=== PATIENT | male | born 1965 | race Caucasian/White ===

== ENCOUNTER 2016-11-30 10:13 | Emergency (ER) | payer MEDICAID ==
[~2016-11-30] VITALS: Ht 172.7 cm; Wt 122.0 kg
[2016-11-30 10:18] VITALS: BP 174/94
== END 2016-11-30 12:26 | disposition home or self-care (01) ==
LOC: ED 12:20
DX: Z00.00 Encounter for general adult medical examination without abnormal findings (principal); K74.60 Unspecified cirrhosis of liver
CPT/HCPCS: 99284

== ENCOUNTER → 2017-11-01 | Outpatient (CLI) | payer MEDICAID | END | disposition home or self-care (01) | LOC: RAD 10:13 | PROVIDERS: ATTEND Family Medicine | DX: R16.1 Splenomegaly, not elsewhere classified (principal); K70.30 Alcoholic cirrhosis of liver without ascites | CPT/HCPCS: 93975 ==

== ENCOUNTER 2019-06-28 12:26 | Emergency (ER) | payer MEDICAID ==
[~2019-06-28] VITALS: Ht 172.7 cm; Wt 117.0 kg
--- NOTE | 2019-06-28 12:44 | NUR ---
PT AMBULATORY TO ROOM FROM TRIAGE.
--- NOTE | 2019-06-28 13:03 | NUR ---
BP CUFF, PULSE OX IN PLACE. PEDAL PULSES PALPABLE. PT R/O WORSENING CHRONIC R SIDED LOW BACK PAIN RADIATING DOWN R LEG. PT STATES INTENSITY HIGH 10/10 AND WORSE WHILE WALKING. PT STATES HX OF SAME, WENT AWAY ON OWN-NO MEDS. PT ALSO STATES INFORMED OF ABNORMAL LABS BY PMD OFFICE WEDNESDAY AND SCHEDULED APPT 07/16 TO REVIEW WITH PMD. WARM BLANKET PROVIDED, CALL LIGHT WITHIN REACH.
[2019-06-28] MEDS ORDERED: OXYcodone/APAP 10/325MG TABLET ONE (13:16)
[2019-06-28] MEDS ORDERED: METHOCARBAMOL 750 MG TABLET ONE (13:16)
--- NOTE | 2019-06-28 13:20 | NUR ---
PT TO CT.
[2019-06-28] MEDS ORDERED: METHOCARBAMOL 750 MG TABLET PO ONE (13:30)
[2019-06-28] MEDS ORDERED: OXYcodone/APAP 10/325MG TABLET PO ONE (13:30)
--- NOTE | 2019-06-28 13:30 | NUR ---
MEDS GIVEN PER ERP ORDER. CALL LIGHT WITHIN REACH.
[2019-06-28 14:03] LABS: ANION GAP 4 mmol/L (5-15); CALCIUM 8.3 mg/dL (8.5-10.1); CHLORIDE 107 mmol/L (98-107); CREATININE 0.84 mg/dL (0.7-1.3)
--- NOTE | 2019-06-28 14:14 | NUR ---
ALL RESULTS BACK, PT FOR RECHECK.
[2019-06-28 15:10] VITALS: BP 137/83
== END 2019-06-28 15:12 | disposition home or self-care (01) ==
LOC: ED 15:06
DX: M51.16 Intervertebral disc disorders with radiculopathy, lumbar region (principal); M48.061 Spinal stenosis, lumbar region without neurogenic claudication; I10 Essential (primary) hypertension; E78.00 Pure hypercholesterolemia, unspecified
CPT/HCPCS: 36415; 72131; 80048; 99284

== ENCOUNTER → 2019-07-25 | Outpatient (CLI) | payer MEDICAID | END | disposition home or self-care (01) | LOC: RAD 15:28 | PROVIDERS: ATTEND Neurological Surgery | DX: M47.26 Other spondylosis with radiculopathy, lumbar region (principal); M51.16 Intervertebral disc disorders with radiculopathy, lumbar region; M48.061 Spinal stenosis, lumbar region without neurogenic claudication | CPT/HCPCS: 72148 ==

== ENCOUNTER 2020-06-12 15:36 | Emergency (ER) | payer MEDICAID ==
[~2020-06-12] VITALS: Ht 172.7 cm; Wt 117.8 kg
--- NOTE | 2020-06-12 17:10 | NUR ---
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
[2020-06-12] MEDS ORDERED: CYCLOBENZAPRINE 10 MG TABLET PO ONE (17:30)
[2020-06-12] MEDS ORDERED: HYDROcodone/APAP 5/325 TABLET PO ONE (17:30)
[2020-06-12] MEDS ORDERED: ONDANSETRON ODT 4 MG PO ONE (17:30)
[2020-06-12] MEDS ORDERED: KETOROLAC 30 MG/1 ML IM ONE (17:30)
[2020-06-12] MEDS ORDERED: KETOROLAC 30 MG/1 ML ONE (17:31)
[2020-06-12] MEDS ORDERED: HYDROcodone/APAP 5/325 TABLET ONE (17:31)
[2020-06-12] MEDS ORDERED: ONDANSETRON ODT 4 MG ONE (17:31)
[2020-06-12] MEDS ORDERED: CYCLOBENZAPRINE 10 MG TABLET ONE (17:31)
--- NOTE | 2020-06-12 17:37 | NUR ---
PT MEDICATED PER EMAR. RESP EVEN AND UNLABORED, NADN.
[2020-06-12 17:57] VITALS: BP 152/88
--- NOTE | 2020-06-12 18:12 | NUR ---
Patient given discharge instructions and they have confirmed that they understand the instructions. Patient ambulatory with steady gait.
== END 2020-06-12 18:13 | disposition home or self-care (01) ==
LOC: ED 17:46
DX: M54.31 Sciatica, right side (principal); M54.5 Low back pain; I10 Essential (primary) hypertension; E78.00 Pure hypercholesterolemia, unspecified
CPT/HCPCS: 72110; 96372; 99284; J1885; Q0162

== ENCOUNTER 2020-07-19 20:28 | Inpatient (IN) | payer MEDICAID ==
[~2020-07-19] VITALS: Ht 175.3 cm; Wt 112.0 kg
[2020-07-19] MEDS ORDERED: SODIUM CHLORIDE FLUSH 10ML SYR IVF ONE (21:00)
[2020-07-19 21:19] LABS: ALBUMIN 3.1 g/dL (3.4-5.0); ANION GAP 4 mmol/L (5-15); CALCIUM 9.1 mg/dL (8.5-10.1); CHLORIDE 105 mmol/L (98-107)
[2020-07-19 21:22] LABS: BASOPHILS % (AUTO) 1 % (0-1); EOSINOPHILS % (AUTO) 2 % (1-7); LYMPHOCYTES % (AUTO) 13 % (22-44); MEAN CORPUSCULAR HEMOGLOBIN 33.6 pg (27.5-34.5); MEAN CORPUSCULAR HGB CONC 34.8 g/dL (33.2-36.2); MEAN PLATELET VOLUME 10.2 fL (7.4-10.4); MONOCYTES % (AUTO) 9 % (2-9); NEUTROPHILS % (AUTO) 76 % (42-75); PLATELET COUNT 102 x10^3/uL (130-400); RED BLOOD COUNT 5.21 x10^6/uL (4.38-5.82); RED CELL DISTRIBUTION WIDTH 13.2 % (9.4-14.8)
[2020-07-19 21:23] LABS: ALANINE AMINOTRANSFERASE 50 U/L (12-78); ALKALINE PHOSPHATASE 198 U/L (45-117); BILIRUBIN,TOTAL 1.5 mg/dL (0.2-1.0); CREATININE 1.09 mg/dL (0.7-1.3); TOTAL PROTEIN 7.4 g/dL (6.4-8.2)
[2020-07-19 22:17] LABS: MD SCAN
--- NOTE | 2020-07-19 22:22 | NUR ---
PT TO RM FROM LOBBY
[2020-07-19] MEDS ORDERED: MORPHINE SULFATE 4 MG/ML, 1ML ONE (22:50)
[2020-07-19] MEDS ORDERED: ONDANSETRON 2MG/ML, 2ML ONE (22:50)
[2020-07-19] MEDS ORDERED: MORPHINE SULFATE 4 MG/ML, 1ML IVPush PRN (23:00)
[2020-07-19] MEDS ORDERED: ONDANSETRON 2MG/ML, 2ML IVPush ONE (23:00)
[2020-07-20] MEDS ORDERED: SODIUM CHLORIDE 0.9% 1,000ML IVBOLUS ONE
[2020-07-20] MEDS ORDERED: MORPHINE SULFATE 4 MG/ML, 1ML IVPush PRN
[2020-07-20] MEDS ORDERED: SODIUM CHLORIDE 0.9% 1,000 ML IV ONE
[2020-07-20] MEDS ORDERED: ONDANSETRON 2MG/ML, 2ML IVPush PRN ×2
[2020-07-20] MEDS ORDERED: LABETALOL 5MG/ML, 20ML IVPush PRN
[2020-07-20] MEDS ORDERED: ENALAPRILAT 1.25 MG/ML, 2ML IVPush PRN
[2020-07-20] MEDS ORDERED: PANT40TA6 PO (00:57)
[2020-07-20] MEDS ORDERED: METF500T17 PO (00:57)
[2020-07-20] MEDS ORDERED: LEVO25TA4 PO (00:57)
[2020-07-20] MEDS ORDERED: FURO40TA6 PO (00:57)
[2020-07-20] MEDS ORDERED: GLIP2.5T3 PO (00:57)
[2020-07-20] MEDS ORDERED: SPIR50TA4 PO (00:57)
[2020-07-20] MEDS ORDERED: LOSA100T14 PO (00:57)
[2020-07-20] MEDS ORDERED: GABA300C PO (00:57)
--- NOTE | 2020-07-20 00:58 | NUR ---
Pt resting comfortably. Pt educated on admission. Report given to floor nurse. Pt transported to floor
[2020-07-20 01:04] VITALS: BP 158/88
[2020-07-20] MEDS: SODIUM CHLORIDE 0.9% 1,000 ML IV SCH ×2 (02:17→08:00)
[2020-07-20 03:00] LABS: MICROSCOPIC NOT IND
[2020-07-20] MEDS: morphine SULFATE 10 MG/ML, 1ML IVPush PRN ×6 (03:07→22:24)
[2020-07-20] MEDS: INSULIN LISPRO 100 UNITS/ML, PEN SQ-INSULIN SCH ×5 (03:26→22:24)
[2020-07-20] MEDS: LEVOTHYROXINE 100 MCG TABLET PO SCH (07:09)
[2020-07-20] MEDS: HEPARIN 5,000 UNITS/ML, 1ML SQ SCH ×3 (07:09→22:32)
[2020-07-20 07:50] VITALS: BP 162/99
[2020-07-20] MEDS: LOSARTAN 100 MG TAB PO SCH (10:16)
[2020-07-20] MEDS: SPIRONOLACTONE 25 MG TABLET PO SCH (10:16)
[2020-07-20] MEDS: FUROSEMIDE 20 MG TABLET PO SCH (10:17)
[2020-07-20 13:58] VITALS: BP 162/88
[2020-07-20 14:00] VITALS: BP 162/88
[2020-07-20] MEDS: D5%-0.45NACL+KCL 20MEQ 1,000 ML IV SCH (16:03)
[2020-07-20 19:22] VITALS: BP 113/70
[2020-07-21] MEDS: morphine SULFATE 10 MG/ML, 1ML IVPush PRN ×5 (02:19→20:16)
[2020-07-21] MEDS: D5%-0.45NACL+KCL 20MEQ 1,000 ML IV SCH ×3 (03:27→20:15)
[2020-07-21 03:28] VITALS: BP 118/76
[2020-07-21] MEDS: LEVOTHYROXINE 100 MCG TABLET PO SCH (05:53)
[2020-07-21] MEDS: HEPARIN 5,000 UNITS/ML, 1ML SQ SCH ×3 (05:53→22:44)
[2020-07-21 06:27] LABS: BASOPHILS % (AUTO) 0 % (0-1); EOSINOPHILS % (AUTO) 2 % (1-7); LYMPHOCYTES % (AUTO) 15 % (22-44); MEAN CORPUSCULAR HEMOGLOBIN 33.8 pg (27.5-34.5); MEAN CORPUSCULAR HGB CONC 34.6 g/dL (33.2-36.2); MEAN PLATELET VOLUME 10.6 fL (7.4-10.4); MONOCYTES % (AUTO) 12 % (2-9); NEUTROPHILS % (AUTO) 70 % (42-75); PLATELET COUNT 86 x10^3/uL (130-400); RED BLOOD COUNT 4.81 x10^6/uL (4.38-5.82); RED CELL DISTRIBUTION WIDTH 13.5 % (9.4-14.8)
[2020-07-21 06:30] LABS: ANION GAP 5 mmol/L (5-15); CALCIUM 8.1 mg/dL (8.5-10.1); CHLORIDE 107 mmol/L (98-107)
[2020-07-21 06:32] LABS: CREATININE 0.91 mg/dL (0.7-1.3)
[2020-07-21] MEDS: INSULIN LISPRO 100 UNITS/ML, PEN SQ-INSULIN SCH ×4 (07:42→20:32)
[2020-07-21 08:00] VITALS: BP 150/84
[2020-07-21 08:00] LABS: MD SCAN
[2020-07-21] MEDS: SPIRONOLACTONE 25 MG TABLET PO SCH (09:10)
[2020-07-21] MEDS: FUROSEMIDE 20 MG TABLET PO SCH (09:10)
[2020-07-21] MEDS: LOSARTAN 100 MG TAB PO SCH (09:10)
[2020-07-21 13:25] VITALS: BP 132/72
[2020-07-21 18:58] VITALS: BP 140/71
[2020-07-22 02:48] VITALS: BP 139/72
[2020-07-22] MEDS: D5%-0.45NACL+KCL 20MEQ 1,000 ML IV SCH ×2 (03:51→16:54)
[2020-07-22] MEDS: morphine SULFATE 10 MG/ML, 1ML IVPush PRN ×3 (05:56→22:24)
[2020-07-22] MEDS: LEVOTHYROXINE 100 MCG TABLET PO SCH (06:47)
[2020-07-22] MEDS: HEPARIN 5,000 UNITS/ML, 1ML SQ SCH ×3 (06:48→22:24)
[2020-07-22 07:55] VITALS: BP 165/90
[2020-07-22] MEDS: SPIRONOLACTONE 25 MG TABLET PO SCH (08:15)
[2020-07-22] MEDS: LOSARTAN 100 MG TAB PO SCH (08:15)
[2020-07-22] MEDS: FUROSEMIDE 20 MG TABLET PO SCH (08:15)
[2020-07-22] MEDS: INSULIN LISPRO 100 UNITS/ML, PEN SQ-INSULIN SCH ×4 (08:16→22:40)
[2020-07-22 09:31] LABS: CALCIUM 8.2 mg/dL (8.5-10.1); CHLORIDE 103 mmol/L (98-107)
[2020-07-22 09:33] LABS: BASOPHILS % (AUTO) 0 % (0-1); EOSINOPHILS % (AUTO) 1 % (1-7); LYMPHOCYTES % (AUTO) 14 % (22-44); MEAN CORPUSCULAR HEMOGLOBIN 33.5 pg (27.5-34.5); MEAN CORPUSCULAR HGB CONC 34.2 g/dL (33.2-36.2); MEAN PLATELET VOLUME 10.3 fL (7.4-10.4); MONOCYTES % (AUTO) 11 % (2-9); NEUTROPHILS % (AUTO) 74 % (42-75); PLATELET COUNT 94 x10^3/uL (130-400); RED BLOOD COUNT 4.77 x10^6/uL (4.38-5.82); RED CELL DISTRIBUTION WIDTH 13.3 % (9.4-14.8)
[2020-07-22 09:34] LABS: ANION GAP 4 mmol/L (5-15); CREATININE 0.95 mg/dL (0.7-1.3)
[2020-07-22 09:59] LABS: MD NO
[2020-07-22 14:05] VITALS: BP 143/84
[2020-07-22 19:56] VITALS: BP 137/80
[2020-07-23] MEDS: D5%-0.45NACL+KCL 20MEQ 1,000 ML IV SCH ×2 (02:21→11:07)
[2020-07-23 02:29] VITALS: BP 144/82
[2020-07-23] MEDS: HEPARIN 5,000 UNITS/ML, 1ML SQ SCH ×3 (06:08→22:19)
[2020-07-23] MEDS: LEVOTHYROXINE 100 MCG TABLET PO SCH (06:09)
[2020-07-23 06:50] VITALS: BP 152/85
[2020-07-23] MEDS: INSULIN LISPRO 100 UNITS/ML, PEN SQ-INSULIN SCH ×4 (08:02→22:19)
[2020-07-23] MEDS: LOSARTAN 100 MG TAB PO SCH (08:55)
[2020-07-23] MEDS: SPIRONOLACTONE 25 MG TABLET PO SCH (08:55)
[2020-07-23] MEDS: FUROSEMIDE 20 MG TABLET PO SCH (08:56)
[2020-07-23 13:00] VITALS: BP 142/80
[2020-07-23 19:01] VITALS: BP 139/76
[2020-07-23] MEDS: morphine SULFATE 10 MG/ML, 1ML IVPush PRN (22:41)
[2020-07-24 02:54] VITALS: BP 122/77
[2020-07-24] MEDS: LEVOTHYROXINE 100 MCG TABLET PO SCH (06:08)
[2020-07-24] MEDS: HEPARIN 5,000 UNITS/ML, 1ML SQ SCH (06:08)
[2020-07-24 06:38] VITALS: BP 137/86
[2020-07-24] MEDS: INSULIN LISPRO 100 UNITS/ML, PEN SQ-INSULIN SCH (07:28)
[2020-07-24] MEDS ORDERED: IBUPROFEN 600 MG TABLET PO ONE (09:00)
[2020-07-24] MEDS: SPIRONOLACTONE 25 MG TABLET PO SCH (09:42)
[2020-07-24] MEDS: FUROSEMIDE 20 MG TABLET PO SCH (09:42)
[2020-07-24] MEDS: LOSARTAN 100 MG TAB PO SCH (09:42)
== END 2020-07-24 10:45 | disposition home or self-care (01) | DRG 390 ==
LOC: ED 23:57 → EDIP 07-20 00:13 → 4NE 07-20 00:57 → DCLOUNGE 07-24 10:30
PROVIDERS: ADMIT Family Medicine; ATTEND Hospitalist
DX: K56.50 Intestinal adhesions [bands], unspecified as to partial versus complete obstruction (principal); K70.30 Alcoholic cirrhosis of liver without ascites; K46.9 Unspecified abdominal hernia without obstruction or gangrene; M54.30 Sciatica, unspecified side; E03.9 Hypothyroidism, unspecified; E11.65 Type 2 diabetes mellitus with hyperglycemia; E78.00 Pure hypercholesterolemia, unspecified; E78.5 Hyperlipidemia, unspecified; I10 Essential (primary) hypertension; K52.9 Noninfective gastroenteritis and colitis, unspecified; Z87.891 Personal history of nicotine dependence; Z79.899 Other long term (current) drug therapy; Z79.891 Long term (current) use of opiate analgesic; Z79.01 Long term (current) use of anticoagulants; Z79.84 Long term (current) use of oral hypoglycemic drugs
CPT/HCPCS: 36415; 74018; 74177; 74250; 80048; 80053; 81003; 82962; 83036; 83690; 85025; 93005; 99285; G0378; J1644; J2405; J1815; J2270; J3480; J7030

== ENCOUNTER → 2020-09-25 | Outpatient (CLI) | payer MEDICAID ==
[~2020-09-25] MED LIST: FURO40TA6 PO; GABA300C PO; GLIP2.5T3 PO; LEVO25TA4 PO; LOSA100T14 PO; METF500T17 PO; PANT40TA6 PO; SPIR50TA4 PO
== END | disposition home or self-care (01) ==
LOC: RAD 08:20
PROVIDERS: ATTEND Physician Assistant Surgical
DX: M51.17 Intervertebral disc disorders with radiculopathy, lumbosacral region (principal); M51.46 Schmorl's nodes, lumbar region; M25.78 Osteophyte, vertebrae; M48.061 Spinal stenosis, lumbar region without neurogenic claudication
CPT/HCPCS: 72114; 72148